=== PATIENT | male | born 1965 | race African-American/Black ===

== ENCOUNTER 2021-11-19 13:58 | Outpatient (CLI) | payer OTHER ==
[2021-11-19 14:54] LABS: Prothrombin Time 13.3 sec (12.0-14.7)
[2021-11-19 15:01] LABS: ALT (SGPT) 24 U/L (8-55); AST (SGOT) 27 U/L (5-34); Albumin 4.2 g/dL (3.5-5.0); Alkaline Phosphatase 117 U/L (40-110); Anion Gap 13 mmol/L (10-20); BUN (Urea Nitrogen) 10 mg/dL (8.4-25.7); Bilirubin, Total 0.3 mg/dL (0.2-1.2); Calc. Creatinine Clearance 0 mL/min (70-130); Calcium 10.3 mg/dL (7.8-10.44); Carbon Dioxide 28 mmol/L (22-29); Chloride 99 mmol/L (98-107); Globulin 3.9 g/dL (2.4-3.5); Glucose 262 mg/dL (70-105); Potassium 5.1 mmol/L (3.5-5.1); Protein, Total 8.1 g/dL (6.0-8.3); Sodium 135 mmol/L (136-145)
== END 2021-11-19 13:59 | disposition home or self-care (01) ==
LOC: NAV RAD 13:58
PROVIDERS: ATTEND Family Medicine
DX: Z02.71 Encounter for disability determination (principal); M25.512 Pain in left shoulder; Z86.19 Personal history of other infectious and parasitic diseases; M19.012 Primary osteoarthritis, left shoulder
CPT/HCPCS: 36415; 80053; 85610